=== PATIENT | male | born 1995 | race Caucasian/White ===

== ENCOUNTER 2018-06-11 06:09 | Emergency (ER) | payer SELFPAY ==
--- NOTE | 2018-06-11 07:04 | ER ---
Nurse's Notes [facility] Name: Sen Chavis Age: 22 yrs Sex: Male : 1995 Arrival Date: 06/11/2018 Time: 06:12 Bed 7 Private MD: Diagnosis: Acute pharyngitis Presentation: 06/11 06:15 Presenting complaint: Patient states: that for 3 days he has had a cough, congestion fc with yellow sputum and sore throat. Denies any fever. Was sent home from work this am at 0200. Transition of care: patient was not received from another setting of care. Onset of symptoms was June 08, 2018. Risk Assessment: Do you want to hurt yourself or someone else? Patient reports no desire to harm self or others. Initial Sepsis Screen: Does the patient meet any 2 criteria? No. Patient's initial sepsis screen is negative. Does the patient have a suspected source of infection? No. Patient's initial sepsis screen is negative. Care prior to arrival: None. 06:15 Method Of Arrival: Ambulatory 06:15 Acuity: ASHOK 4 fc Historical: - Allergies: 06:32 No Known Allergies; fc - Home Meds: 06:32 None [Active]; fc - PMHx: 06:32 None; fc - PSHx: 06:32 None; fc - Immunization history:: Last tetanus immunization: unknown, Flu vaccine is not up to date. - Social history:: Smoking status: Patient/guardian denies using tobacco, Patient uses alcohol, occasionally. - Ebola Screening: : Patient negative for fever greater than or equal to 101.5 degrees Fahrenheit, and additional compatible Ebola Virus Disease symptoms Patient denies exposure to infectious person Patient denies travel to an Ebola-affected area in the 21 days before illness onset. Screenin:15 Abuse screen: Denies threats or abuse. Nutritional screening: No deficits noted. fc Tuberculosis screening: No symptoms or risk factors identified. Fall Risk None identified. Assessment: 07:00 General: Appears in no apparent distress. comfortable, Behavior is calm, cooperative, bp appropriate for age. Pain: Complains of pain in neck. Neuro: Level of Consciousness is awake, alert, obeys commands, Oriented to person, place, time, situation, Appropriate for age. Cardiovascular: No deficits noted. Respiratory: Airway is patent Respiratory effort is even, unlabored, Respiratory pattern is regular, symmetrical, Breath sounds are clear bilaterally. GI: No signs and/or symptoms were reported involving the gastrointestinal system. : No signs and/or symptoms were reported regarding the genitourinary system. EENT: Throat is reddened bilaterally with gag reflex present. Derm: No deficits noted. Musculoskeletal: Circulation, motion, and sensation intact. Range of motion: intact in all extremities. 07:41 Reassessment: PT D/C HOME AMBULATORY WITH FAMILY, DX WITH ACUTE PHARYNGITIS. bp Vital Signs: 06:15 BP 122 / 94; Pulse 72; Resp 18; Temp 98.4(O); Pulse Ox 98% on R/A; Weight 97.52 kg (R); fc Height 6 ft. 1 in. (185.42 cm) (R); Pain 8/10; 07:21 BP 122 / 75; Pulse 69; Resp 14; Pulse Ox 98% ; bp 06:15 Body Mass Index 28.37 (97.52 kg, 185.42 cm) ED Course: 06:12 Patient arrived in ED. ag3 06:15 Arm band placed on Patient placed in an exam room, on a stretcher. fc 06:15 Patient has correct armband on for positive identification. Bed in low position. Call light in reach. 06:15 No provider procedures requiring assistance completed. fc 06:30 Triage completed. fc 06:32 [facility] jr8 06:32 Geoffrey Christianson MD is Attending Physician. jr8 06:59 Johnie Klein, KIERRA is Primary Nurse. bp 07:22 Patient did not have IV access during this emergency room visit. bp Administered Medications: 07:15 Drug: Decadron 4 mg Route: PO; bp 07:19 Follow up: Response: No adverse reaction bp Outcome: 07:04 Discharge ordered by . jr8 07:41 Discharged to home ambulatory, with family. bp 07:41 Condition: stable 07:41 Discharge instructions given to patient, Instructed on discharge instructions, follow up and referral plans. medication usage, Demonstrated understanding of instructions, follow-up care, medications, Prescriptions given X 1. 07:42 Patient left the ED. bp Signatures: Modesta Haile RN RN Marcus Haney PA PA jr Latoya, Johnie, RN RN bp Russell, Shelly ag3
--- NOTE | 2018-06-11 07:05 | EDPHYS ---
Physician Documentation [facility] Name: Sen Chavis Age: 22 yrs Sex: Male : 1995 Arrival Date: 06/11/2018 Time: 06:12 Bed 7 Private MD: ED Physician Geoffrey Christianson HPI: 06/11 06:48 This 22 yrs old Male presents to ER via Ambulatory with complaints of Sore jr8 Throat. 06:48 The patient presents with sore throat. The patient describes throat pain as raw. Onset: jr8 The symptoms/episode began/occurred acutely, yesterday. Severity of symptoms: At their worst the symptoms were moderate, in the emergency department the symptoms are unchanged. Modifying factors: The symptoms are alleviated by nothing, the symptoms are aggravated by swallowing. Associated signs and symptoms: The patient has no apparent associated signs or symptoms. The patient has not experienced similar symptoms in the past. The patient has not recently seen a physician. Historical: - Allergies: 06:32 No Known Allergies; fc - Home Meds: 06:32 None [Active]; fc - PMHx: 06:32 None; fc - PSHx: 06:32 None; fc - Immunization history:: Last tetanus immunization: unknown, Flu vaccine is not up to date. - Social history:: Smoking status: Patient/guardian denies using tobacco, Patient uses alcohol, occasionally. - Ebola Screening: : Patient negative for fever greater than or equal to 101.5 degrees Fahrenheit, and additional compatible Ebola Virus Disease symptoms Patient denies exposure to infectious person Patient denies travel to an Ebola-affected area in the 21 days before illness onset. ROS: 06:48 Eyes: Negative for injury, pain, redness, and discharge, Neck: Negative for injury, jr8 pain, and swelling, Cardiovascular: Negative for chest pain, palpitations, and edema, Respiratory: Negative for shortness of breath, cough, wheezing, and pleuritic chest pain, Abdomen/GI: Negative for abdominal pain, nausea, vomiting, diarrhea, and constipation, Back: Negative for injury and pain, MS/Extremity: Negative for injury and deformity, Skin: Negative for injury, rash, and discoloration, Neuro: Negative for headache, weakness, numbness, tingling, and seizure. 06:48 ENT: Positive for sore throat, Negative for drainage from ear(s), ear pain, rhinorrhea, sinus congestion, difficulty swallowing, difficulty handling secretions, hoarseness. Exam: 06:48 Eyes: Pupils equal round and reactive to light, extra-ocular motions intact. Lids and jr8 lashes normal. Conjunctiva and sclera are non-icteric and not injected. Cornea within normal limits. Periorbital areas with no swelling, redness, or edema. Neck: Trachea midline, no thyromegaly or masses palpated, and no cervical lymphadenopathy. Supple, full range of motion without nuchal rigidity, or vertebral point tenderness. No Meningismus. Cardiovascular: Regular rate and rhythm with a normal S1 and S2. No gallops, murmurs, or rubs. Normal PMI, no JVD. No pulse deficits. Respiratory: Lungs have equal breath sounds bilaterally, clear to auscultation and percussion. No rales, rhonchi or wheezes noted. No increased work of breathing, no retractions or nasal flaring. Abdomen/GI: Soft, non-tender, with normal bowel sounds. No distension or tympany. No guarding or rebound. No evidence of tenderness throughout. Back: No spinal tenderness. No costovertebral tenderness. Full range of motion. Skin: Warm, dry with normal turgor. Normal color with no rashes, no lesions, and no evidence of cellulitis. MS/ Extremity: Pulses equal, no cyanosis. Neurovascular intact. Full, normal range of motion. Neuro: Awake and alert, GCS 15, oriented to person, place, time, and situation. Cranial nerves II-XII grossly intact. Motor strength 5/5 in all extremities. Sensory grossly intact. Cerebellar exam normal. Normal gait. 06:48 ENT: Exam is negative for earache, ear discharge, TM abnormalities, nasal discharge, Mouth: Lips: moist, Oral mucosa: pink and intact, moist, Gums: pink, Tongue: is normal, Posterior pharynx: Airway: patent, Tonsils: with erythema, no enlargement, no exudate, no ulcerations, Uvula: midline, non-edematous, no erythema, swelling, is not appreciated, erythema, that is mild. Vital Signs: 06:15 BP 122 / 94; Pulse 72; Resp 18; Temp 98.4(O); Pulse Ox 98% on R/A; Weight 97.52 kg (R); fc Height 6 ft. 1 in. (185.42 cm) (R); Pain 8/10; 07:21 BP 122 / 75; Pulse 69; Resp 14; Pulse Ox 98% ; bp 06:15 Body Mass Index 28.37 (97.52 kg, 185.42 cm) MDM: 06:32 Patient medically screened. 8 07:03 Data reviewed: vital signs, nurses notes, lab test result(s), and as a result, I will jr8 discharge patient. Data interpreted: Pulse oximetry: on room air is 98 %. Interpretation: normal. Counseling: I had a detailed discussion with the patient and/or guardian regarding: the historical points, exam findings, and any diagnostic results supporting the discharge/admit diagnosis, lab results, the need for outpatient follow up, a family practitioner, to return to the emergency department if symptoms worsen or persist or if there are any questions or concerns that arise at home. 06/11 06:28 Order name: Strep; Complete Time: 07:03 em1 06/11 06:52 Order name: Throat Culture EDMS Administered Medications: 07:15 Drug: Decadron 4 mg Route: PO; bp 07:19 Follow up: Response: No adverse reaction bp Disposition: 06/11/18 07:04 Discharged to Home. Impression: Acute pharyngitis. - Condition is Stable. - Discharge Instructions: Pharyngitis. - Prescriptions for Tessalon Perles 100 mg Oral Capsule - take 1 capsule by ORAL route every 8 hours As needed; 15 capsule. - Work release form, Medication Reconciliation Form, Thank You Letter, Antibiotic Education, Prescription Opioid Use form. - Follow up: Private Physician; When: As needed; Reason: Recheck today's complaints, Continuance of care, Re-evaluation by your physician. - Problem is new. - Symptoms have improved. Signatures: Dispatcher [employer] EDMS Modesta Haile RN RN Marcus Haney PA PA jr8 Johnie Klein RN RN bp Corrections: (The following items were deleted from the chart) 07:42 07:04 06/11/2018 07:04 Discharged to Home. Impression: Acute pharyngitis. Condition is bp Stable. Forms are Medication Reconciliation Form, Thank You Letter, Antibiotic Education, Prescription Opioid Use. Follow up: Private Physician; When: As needed; Reason: Recheck today's complaints, Continuance of care, Re-evaluation by your physician. Problem is new. Symptoms have improved. jr8
[2018-06-11] MEDS ORDERED: DEXAMETHASONE 4 MG TAB ONE (07:23)
== END 2018-06-11 07:42 | disposition home or self-care (01) ==
LOC: ER 06:09
DX: J02.9 Acute pharyngitis, unspecified (principal)
CPT/HCPCS: 87070; 87081; 99283

== ENCOUNTER 2020-09-29 21:43 | Emergency (ER) | payer SELFPAY ==
[2020-09-30] MEDS ORDERED: DIPHENHYDRAMINE 25 MG TAB/CAP ONE (01:50)
[2020-09-30] MEDS ORDERED: predniSONE 20 MG TAB ONE (01:50)
[2020-09-30] MEDS ORDERED: FAMOTIDINE 20 MG TAB ONE (01:51)
--- NOTE | 2020-09-30 02:12 | ER ---
Nurse's Notes [facility] Name: Sen Chavis Age: 25 yrs Sex: Male : 1995 Arrival Date: 09/29/2020 Time: 21:46 Bed 30 Private MD: Diagnosis: Rash and other nonspecific skin eruption Presentation: 09/29 22:14 Chief complaint: Patient states: he is having an allergic reaction possibly to an asp bb that was on him yesterday has taken Benadryl with no relief. Coronavirus screen: At this time, the client does not indicate any symptoms associated with coronavirus-19. Ebola Screen: No symptoms or risks identified at this time. Initial Sepsis Screen: Does the patient meet any 2 criteria? No. Patient's initial sepsis screen is negative. Does the patient have a suspected source of infection? No. Patient's initial sepsis screen is negative. Risk Assessment: Do you want to hurt yourself or someone else? Patient reports no desire to harm self or others. Onset of symptoms was September 28, 2020. 22:14 Method Of Arrival: Ambulatory bb 22:14 Acuity: ASHOK 4 bb Triage Assessment: 22:17 General: Appears in no apparent distress. Behavior is calm, cooperative. Pain: bb Complains of pain in throat Pain currently is 6 out of 10 on a pain scale. Neuro: Level of Consciousness is awake, alert, obeys commands, Oriented to person, place, time, situation. Cardiovascular: Heart tones present. Respiratory: Respiratory effort is even, unlabored, Respiratory pattern is regular. Derm: Rash noted that is raised, vesicular, on back of neck. Musculoskeletal: Circulation, motion, and sensation intact. Historical: - Allergies: 22:17 poison rich; bb 22:17 wasps; bb - Immunization history:: Adult Immunizations up to date. - Social history:: Smoking status: Patient denies any tobacco usage or history of. Screenin/26 00:12 Abuse screen: Denies threats or abuse. Nutritional screening: No deficits noted. bb Tuberculosis screening: No symptoms or risk factors identified. Fall Risk None identified. Assessment: 00:12 Reassessment: No changes from previously documented assessment. see triage assessment. bb 00:58 Reassessment: Patient is alert, oriented x 3, equal unlabored respirations, skin bb warm/dry/pink. 02:32 Reassessment: Patient is alert, oriented x 3, equal unlabored respirations, skin bb warm/dry/pink. pt verbalized understanding of and agrees to plan of care discharge instructions given pt ambulated with steady gait to exit accompanied by family. Vital Signs: 09/29 22:14 BP 135 / 91; Pulse 73; Resp 16 S; Temp 98.7(O); Pulse Ox 99% on R/A; Weight 104.33 kg bb (R); Height 5 ft. 11 in. (180.34 cm) (R); Pain 6/10; 09/30 00:58 BP 114 / 85; Pulse 92; Resp 14 S; Pulse Ox 95% on R/A; bb 01:59 BP 116 / 85; Pulse 77; Resp 14 S; Temp 97.4(TE); Pulse Ox 96% on R/A; bb 09/29 22:14 Body Mass Index 32.08 (104.33 kg, 180.34 cm) bb ED Course: 09/29 21:46 Patient arrived in ED. bp1 22:16 Triage completed. bb 22:17 Arm band placed on Patient placed in waiting room, Patient notified of wait time. bb 09/30 00:12 Patient has correct armband on for positive identification. Bed in low position. Call bb light in reach. 00:29 Gabriel Gutierrez MD is Attending Physician. 7 02:11 Giovanny Elmore MD is Referral Physician. [facility] 02:32 No provider procedures requiring assistance completed. Patient did not have IV access bb during this emergency room visit. Administered Medications: 01:36 Drug: Benadryl (diphenhydrAMINE) 50 mg Route: PO; bb 02:29 Follow up: Response: No adverse reaction bb 01:36 Drug: predniSONE 60 mg Route: PO; bb 02:29 Follow up: Response: No adverse reaction bb 01:36 Drug: Pepcid (famotidine) 20 mg Route: PO; bb 02:29 Follow up: Response: No adverse reaction bb Outcome: 02:12 Discharge ordered by . 7 02:32 Discharged to home ambulatory, with family. bb 02:32 Condition: stable 02:32 Discharge instructions given to patient, Instructed on discharge instructions, follow up and referral plans. medication usage, Demonstrated understanding of instructions, follow-up care, medications, Prescriptions given X 3. 02:33 Patient left the ED. bb Signatures: Rosa Isela Bryan RN RN Radha Sanches Maurice, MD MD mh7
--- NOTE | 2020-09-30 02:12 | EDPHYS ---
Physician Documentation [facility] Name: Sen Chavis Age: 25 yrs Sex: Male : 1995 Arrival Date: 09/29/2020 Time: 21:46 Bed 30 Private MD: ED Physician Gabriel Gutierrez HPI: 09/30 02:03 This 25 yrs old Male presents to ER via Ambulatory with complaints of Rash, - mh7 On neck. 02:03 The patient's rash thought to be caused by insect bites. The rash is located on the mh7 left side of neck. The rash can be described as erythematous, urticarial, itchy. 02:05 Onset: The symptoms/episode began/occurred 2 day(s) ago. Associated signs and symptoms: mh7 Pertinent positives: itching. 02:05 Associated signs and symptoms: Pertinent negatives: burning sensation, difficulty mh7 breathing, fever, nausea, Pain swelling of lips, swelling of throat, swelling of tongue, vomiting, wheezing. Severity of symptoms: At their worst the symptoms were moderate yesterday, in the emergency department the symptoms have improved mildly. Historical: - Allergies: 09/29 22:17 poison rich; bb 22:17 wasps; bb - Immunization history:: Adult Immunizations up to date. - Social history:: Smoking status: Patient denies any tobacco usage or history of. ROS: 09/30 02:05 Constitutional: Negative for fever, chills, and weight loss, Eyes: Negative for injury, mh7 pain, redness, and discharge, ENT: Negative for injury, pain, and discharge, Cardiovascular: Negative for chest pain, palpitations, and edema, Respiratory: Negative for shortness of breath, cough, wheezing, and pleuritic chest pain, Abdomen/GI: Negative for abdominal pain, nausea, vomiting, diarrhea, and constipation, Back: Negative for injury and pain, : Negative for injury, bleeding, discharge, and swelling, MS/Extremity: Negative for injury and deformity, Neuro: Negative for headache, weakness, numbness, tingling, and seizure, Psych: Negative for depression, anxiety, suicide ideation, homicidal ideation, and hallucinations, Endocrine: Negative for neck swelling, polydipsia, polyuria, polyphagia, and marked weight changes, Hematologic/Lymphatic: Negative for swollen nodes, abnormal bleeding, and unusual bruising. Exam: 02:05 Constitutional: This is a well developed, well nourished patient who is awake, alert, mh7 and in no acute distress. Head/Face: Normocephalic, atraumatic. Eyes: Pupils equal round and reactive to light, extra-ocular motions intact. Lids and lashes normal. Conjunctiva and sclera are non-icteric and not injected. Cornea within normal limits. Periorbital areas with no swelling, redness, or edema. ENT: Nares patent. No nasal discharge, no septal abnormalities noted. Tympanic membranes are normal and external auditory canals are clear. Oropharynx with no redness, swelling, or masses, exudates, or evidence of obstruction, uvula midline. Mucous membranes moist. 02:05 Cardiovascular: Regular rate and rhythm with a normal S1 and S2. No gallops, murmurs, or rubs. Normal PMI, no JVD. No pulse deficits. Respiratory: Lungs have equal breath sounds bilaterally, clear to auscultation and percussion. No rales, rhonchi or wheezes noted. No increased work of breathing, no retractions or nasal flaring. Abdomen/GI: Soft, non-tender, with normal bowel sounds. No distension or tympany. No guarding or rebound. No evidence of tenderness throughout. Back: No spinal tenderness. No costovertebral tenderness. Full range of motion. 02:05 MS/ Extremity: Pulses equal, no cyanosis. Neurovascular intact. Full, normal range of motion. Neuro: Awake and alert, GCS 15, oriented to person, place, time, and situation. Cranial nerves II-XII grossly intact. Motor strength 5/5 in all extremities. Sensory grossly intact. Cerebellar exam normal. Normal gait. Psych: Awake, alert, with orientation to person, place and time. Behavior, mood, and affect are within normal limits. 02:05 Neck: External neck: rash, that is mild, of the left mid cervical area and left trapezius, C-spine: appears grossly normal, Thyroid: appears normal, Trachea: is midline with no obvious abnormalities, ROM/movement: is normal, Lymph nodes: no appreciated lymphadenopathy. 02:05 Chest/axilla: Inspection: rash, that is mild, Palpation: is normal, Axilla: are normal, Lymph nodes: lymphadenopathy is not appreciated. 02:05 Skin: urticaria, on the left side postrior neck to left upper chest. Vital Signs: 09/29 22:14 BP 135 / 91; Pulse 73; Resp 16 S; Temp 98.7(O); Pulse Ox 99% on R/A; Weight 104.33 kg bb (R); Height 5 ft. 11 in. (180.34 cm) (R); Pain 6/10; 09/30 00:58 BP 114 / 85; Pulse 92; Resp 14 S; Pulse Ox 95% on R/A; bb 01:59 BP 116 / 85; Pulse 77; Resp 14 S; Temp 97.4(TE); Pulse Ox 96% on R/A; bb 09/29 22:14 Body Mass Index 32.08 (104.33 kg, 180.34 cm) bb MDM: 02:05 Differential diagnosis: impetigo, allergic reaction, insect bite. Data reviewed: vital [facility] signs, nurses notes. Data interpreted: Pulse oximetry: on room air is 96 %. Interpretation: normal. Counseling: I had a detailed discussion with the patient and/or guardian regarding: the historical points, exam findings, and any diagnostic results supporting the discharge/admit diagnosis, the need for outpatient follow up, a tail end rider, to return to the emergency department if symptoms worsen or persist or if there are any questions or concerns that arise at home. Response to treatment: the patient's symptoms have markedly improved after treatment. 02:12 Patient medically screened. [facility] Administered Medications: 01:36 Drug: Benadryl (diphenhydrAMINE) 50 mg Route: PO; bb 02:29 Follow up: Response: No adverse reaction bb 01:36 Drug: predniSONE 60 mg Route: PO; bb 02:29 Follow up: Response: No adverse reaction bb 01:36 Drug: Pepcid (famotidine) 20 mg Route: PO; bb 02:29 Follow up: Response: No adverse reaction bb Disposition: 09/30/20 02:12 Discharged to Home. Impression: Rash and other nonspecific skin eruption. - Condition is Stable. - Discharge Instructions: Rash, [id number], Allergies, [id number]. - Prescriptions for Benadryl 25 mg Oral Capsule - take 1 capsule by ORAL route every 6 hours As needed; 30 tablet. Pepcid 20 mg Oral Tablet - take 1 tablet by ORAL route every 12 hours for 5 days; 10 tablet. Prednisone 20 mg Oral Tablet - take 2 tablet by ORAL route once daily for 5 days; 10 tablet. - Family Work Release, Medication Reconciliation Form, Thank You Letter, Antibiotic Education, Prescription Opioid Use, Work release form form. - Follow up: Private Physician; When: 1 - 2 days; Reason: Worsening of condition, Recheck today's complaints, Continuance of care, Re-evaluation by your physician. Follow up: Giovanny Elmore MD; When: 1 - 2 days; Reason: Worsening of condition, Recheck today's complaints. - Problem is new. - Symptoms have improved. Signatures: Rosa Isela Bryan RN RN bb Gabriel Gutierrez MD MD mh7 Corrections: (The following items were deleted from the chart) 02:33 02:12 09/30/2020 02:12 Discharged to Home. Impression: Rash and other nonspecific skin bb eruption. Condition is Stable. Forms are Medication Reconciliation Form, Thank You Letter, Antibiotic Education, Prescription Opioid Use. Follow up: Private Physician; When: 1 - 2 days; Reason: Worsening of condition, Recheck today's complaints, Continuance of care, Re-evaluation by your physician. Follow up: Giovanny Elmore; When: 1 - 2 days; Reason: Worsening of condition, Recheck today's complaints. Problem is new. Symptoms have improved. mh7
[2020-09-30 02:41] VITALS: BP 116/85; TEMP 97.4; O2SAT 96
== END 2020-09-30 02:33 | disposition home or self-care (01) ==
LOC: ER 21:43
DX: R21 Rash and other nonspecific skin eruption (principal); Z91.038 Other insect allergy status; Z91.048 Other nonmedicinal substance allergy status
CPT/HCPCS: 99283; J7512

== ENCOUNTER 2020-11-08 17:08 | Emergency (ER) | payer SELFPAY ==
--- NOTE | 2020-11-08 17:23 | ER ---
Nurse's Notes [facility] Nathanael Name: Sen Chavis Age: 25 yrs Sex: Male : 1995 Arrival Date: 11/08/2020 Time: 17:11 Bed Waiting Private MD: Diagnosis: Diarrhea, unspecified Presentation: 11/08 17:16 Chief complaint: Patient states: "I am just needing a work note for calling into work jd3 today for some diarrhea. I am fine now, I just need a note.". Coronavirus screen: At this time, the client does not indicate any symptoms associated with coronavirus-19. Ebola Screen: Patient negative for fever greater than or equal to 101.5 degrees Fahrenheit, and additional compatible Ebola Virus Disease symptoms. Initial Sepsis Screen: Does the patient meet any 2 criteria? No. Patient's initial sepsis screen is negative. Does the patient have a suspected source of infection? No. Patient's initial sepsis screen is negative. Risk Assessment: Do you want to hurt yourself or someone else? Patient reports no desire to harm self or others. Onset of symptoms was November 08, 2020. 17:16 Acuity: ASHOK 5 jd3 17:16 Method Of Arrival: Ambulatory jd3 Historical: - Allergies: 17:18 POISON EDI; jd3 17:18 Wasps; jd3 - Home Meds: 17:18 None [Active]; jd3 - PMHx: 17:18 None; jd3 - PSHx: 17:18 None; jd3 - Immunization history:: Adult Immunizations up to date. - Social history:: Smoking status: Patient/guardian denies using tobacco, the patient reports quitting approximately 2 years ago. Screenin:30 Abuse screen: Denies threats or abuse. Nutritional screening: No deficits noted. jd3 Tuberculosis screening: No symptoms or risk factors identified. Fall Risk None identified. Assessment: 17:30 General: Appears in no apparent distress. comfortable, Behavior is calm, cooperative, jd3 appropriate for age. Pain: Denies pain. Neuro: Level of Consciousness is awake, alert, obeys commands, Oriented to person, place, time, situation. Cardiovascular: Denies chest pain, Capillary refill < 3 seconds Patient's skin is warm and dry. Respiratory: Airway is patent Respiratory effort is even, unlabored, Respiratory pattern is regular, symmetrical, Denies cough, shortness of breath. GI: Reports diarrhea earlier today. reports feeling better now. : No signs and/or symptoms were reported regarding the genitourinary system. EENT: No signs and/or symptoms were reported regarding the EENT system. Derm: Skin is intact, Skin is dry, Skin is normal, Skin temperature is warm. Musculoskeletal: Circulation, motion, and sensation intact. Range of motion: intact in all extremities. Vital Signs: 17:18 BP 120 / 87; Pulse 88; Resp 16 S; Temp 97.5(TE); Pulse Ox 99% on R/A; Weight 97.52 kg jd3 (R); Height 6 ft. 0 in. (182.88 cm) (R); Pain 0/10; 17:18 Body Mass Index 29.16 (97.52 kg, 182.88 cm) jd3 ED Course: 17:11 Patient arrived in ED. mr 17:17 Triage completed. jd3 17:18 Arm band placed on. jd3 17:20 Marcus Haney PA is PHCP. jr8 17:20 Kelton Guzman MD is Attending Physician. jr8 17:30 Charles Short RN is Primary Nurse. jd3 17:31 No provider procedures requiring assistance completed. Patient did not have IV access jd3 during this emergency room visit. 17:32 Patient has correct armband on for positive identification. Bed in low position. Call jd3 light in reach. Pulse ox on. NIBP on. Administered Medications: No medications were administered Outcome: 17:23 Discharge ordered by . jr8 17:31 Discharged to home ambulatory. jd3 17:31 Condition: stable 17:31 Discharge instructions given to patient, Instructed on discharge instructions, follow up and referral plans. Demonstrated understanding of instructions, follow-up care. 17:32 Patient left the ED. jd3 Signatures: James Kirsten mr Marcus Haney PA PA jr8 Charles Short, RN RN jd3
--- NOTE | 2020-11-08 17:23 | EDPHYS ---
Physician Documentation [facility] Name: Sen Chavis Age: 25 yrs Sex: Male : 1995 Arrival Date: 11/08/2020 Time: 17:11 Bed Waiting Private MD: ED Physician Kelton Guzman HPI: 11/08 17:20 This 25 yrs old Male presents to ER via Ambulatory with complaints of jr8 Diarrhea. 17:20 The patient presents to the emergency department with diarrhea. Onset: The jr8 symptoms/episode began/occurred acutely, yesterday. Possible causes: unknown. The symptoms are aggravated by nothing. The symptoms are alleviated by nothing. Associated signs and symptoms: The patient has no apparent associated signs or symptoms. Severity of symptoms: At their worst the symptoms were mild in the emergency department the symptoms have resolved and did so earlier today. The patient has not experienced similar symptoms in the past. The patient has not recently seen a physician. Stated that work will not let him come back now without work note. Denies any symptoms now . Historical: - Allergies: 17:18 POISON EDI; jd3 17:18 Wasps; jd3 - Home Meds: 17:18 None [Active]; jd3 - PMHx: 17:18 None; jd3 - PSHx: 17:18 None; jd3 - Immunization history:: Adult Immunizations up to date. - Social history:: Smoking status: Patient/guardian denies using tobacco, the patient reports quitting approximately 2 years ago. ROS: 17:20 Eyes: Negative for injury, pain, redness, and discharge, ENT: Negative for injury, jr8 pain, and discharge, Neck: Negative for injury, pain, and swelling, Cardiovascular: Negative for chest pain, palpitations, and edema, Respiratory: Negative for shortness of breath, cough, wheezing, and pleuritic chest pain, Back: Negative for injury and pain, MS/Extremity: Negative for injury and deformity, Skin: Negative for injury, rash, and discoloration, Neuro: Negative for headache, weakness, numbness, tingling, and seizure. 17:20 Abdomen/GI: Positive for diarrhea, Negative for abdominal pain, nausea, vomiting, abdominal distension, rectal bleeding. Exam: 17:20 Constitutional: This is a well developed, well nourished patient who is awake, alert, jr8 and in no acute distress. Eyes: Pupils equal round and reactive to light, extra-ocular motions intact. Lids and lashes normal. Conjunctiva and sclera are non-icteric and not injected. Cornea within normal limits. Periorbital areas with no swelling, redness, or edema. ENT: Nares patent. No nasal discharge, no septal abnormalities noted. Tympanic membranes are normal and external auditory canals are clear. Oropharynx with no redness, swelling, or masses, exudates, or evidence of obstruction, uvula midline. Mucous membranes moist. Neck: Trachea midline, no thyromegaly or masses palpated, and no cervical lymphadenopathy. Supple, full range of motion without nuchal rigidity, or vertebral point tenderness. No Meningismus. Cardiovascular: Regular rate and rhythm with a normal S1 and S2. No gallops, murmurs, or rubs. Normal PMI, no JVD. No pulse deficits. Respiratory: Lungs have equal breath sounds bilaterally, clear to auscultation and percussion. No rales, rhonchi or wheezes noted. No increased work of breathing, no retractions or nasal flaring. Abdomen/GI: Soft, non-tender, with normal bowel sounds. No distension or tympany. No guarding or rebound. No evidence of tenderness throughout. Back: No spinal tenderness. No costovertebral tenderness. Full range of motion. Skin: Warm, dry with normal turgor. Normal color with no rashes, no lesions, and no evidence of cellulitis. MS/ Extremity: Pulses equal, no cyanosis. Neurovascular intact. Full, normal range of motion. Neuro: Awake and alert, GCS 15, oriented to person, place, time, and situation. Cranial nerves II-XII grossly intact. Motor strength 5/5 in all extremities. Sensory grossly intact. Cerebellar exam normal. Normal gait. Vital Signs: 17:18 BP 120 / 87; Pulse 88; Resp 16 S; Temp 97.5(TE); Pulse Ox 99% on R/A; Weight 97.52 kg jd3 (R); Height 6 ft. 0 in. (182.88 cm) (R); Pain 0/10; 17:18 Body Mass Index 29.16 (97.52 kg, 182.88 cm) jd3 MDM: 17:20 Patient medically screened. jr8 17:20 Data reviewed: vital signs, nurses notes, and as a result, I will discharge patient. jr8 Data interpreted: Pulse oximetry: on room air is 99 %. Interpretation: normal. Counseling: I had a detailed discussion with the patient and/or guardian regarding: the historical points, exam findings, and any diagnostic results supporting the discharge/admit diagnosis, the need for outpatient follow up, a family practitioner, to return to the emergency department if symptoms worsen or persist or if there are any questions or concerns that arise at home. Administered Medications: No medications were administered Disposition: 18:44 Co-signature as Attending Physician, Kelton Guzman MD I agree with the assessment and kdr plan of care. Disposition: 11/08/20 17:23 Discharged to Home. Impression: Diarrhea, unspecified. - Condition is Stable. - Discharge Instructions: Food Choices to Help Relieve Diarrhea, Adult, Diarrhea, Adult. - Work release form, Medication Reconciliation Form, Thank You Letter, Antibiotic Education, Prescription Opioid Use form. - Follow up: Private Physician; When: As needed; Reason: Recheck today's complaints, Continuance of care, Re-evaluation by your physician. - Problem is new. - Symptoms are resolved. Signatures: Kelton Guzman MD MD kdr Marcus Haney PA PA jr8 Charles Short RN RN jd3 Corrections: (The following items were deleted from the chart) 17:32 17:23 11/08/2020 17:23 Discharged to Home. Impression: Diarrhea, unspecified. Condition jd3 is Stable. Forms are Medication Reconciliation Form, Thank You Letter, Antibiotic Education, Prescription Opioid Use. Follow up: Private Physician; When: As needed; Reason: Recheck today's complaints, Continuance of care, Re-evaluation by your physician. Problem is new. Symptoms are resolved. jr8
[2020-11-08 18:11] VITALS: BP 120/87; TEMP 97.5; O2SAT 99
== END 2020-11-08 17:32 | disposition home or self-care (01) ==
LOC: ER 17:08
DX: R19.7 Diarrhea, unspecified (principal); Z87.891 Personal history of nicotine dependence
CPT/HCPCS: 99283

== ENCOUNTER 2023-03-09 10:33 | Emergency (ER) | payer SELFPAY ==
--- OUTSIDE RECORDS SUMMARY | 2023-03-09 10:47 | XMS REPORT | Continuity of Care Document ---
:1995 [facility] t Address [address] [facility] [address] [place] [address] Care Team Providers Name Role Phone Pcp, Patient Does Not Have A Primary Care Physician [id number] LEIGHTON ROMEOR Attending Clinician Unavailable Doctor Unassigned, [place] Attending Clinician Unavailable Gill Perez RN Attending Clinician Unavailable Unknown, Attending Attending Clinician Unavailable Payers Payer Name Policy Type Policy Number Effective Date Expiration Date [facility] [id number] 2014 PPO 00:00:00 Problems This patient has no known problems. Allergies, Adverse Reactions, Alerts Allergy Allergy Status Severity Reaction(s) Onset Inactive Treating Comm ents Source Name Type Date Date Clinician NO KNOWN Drug Active [facility] ALLERGIE Class ity of [facility] Social History Social Habit Start Date Stop Date Quantity Comments Source Sexual orientation [facility] Exposure to 2020-12-26 2021-01-25 Not sure [facility] SARS-CoV-2 (event) 00:00:00 10:39:00 Medica l Branch Sex Assigned At [birth year] [facility] 00:00:00 00:00:00 Medical Branch Smoking Status Start Date Stop Date Source Tobacco smoking consumption [facility] Medical unknown Branch Medications Ordered Filled Start Stop Current Ordering Indication Dosage Frequency Signature Comments Components Source Medication Medication Date Date Medication? Clinician (SIG) Name Name benzonatate 2018-06 Yes [id number] 100mg Take 1 Univers 100 mg 1-11 capsule by ity of capsule 00:00: mouth 3 00 (three) Medical times Branch daily as needed for Cough. methylPREDN 2018-06 Yes [id number] Take by Univers ISolone 1-11 mouth ity of (MEDROL, 00:00: SEE-INSTRU [place] as MIK,) 4 mg 00 CTIONS. Medica l tablets follow Branch package directions ondansetron 2018-06 Yes [id number] 4mg Take 1 Univers (ZOFRAN 1-11 tablet by ity of ODT) 4 mg 00:00: mouth [place] disintegrat 00 every 8 Medic al ing tablet (eight) Branch hours as needed for Nausea and Vomiting (N/V). ibuprofen 2018-06 Yes [id number] 600mg Take 1 U nivers 600 mg 1-11 tablet by ity of tablet 00:00: mouth [place] 00 every 6 Medical (six) Branch hours as needed for Pain (scale 4-6). benzonatate 2018-06 Yes [id number] 100mg Take 1 [facility] 100 mg 1-11 capsule by ity of capsule 00:00: mouth 3 [place] 00 (three) Medical times Branch daily as needed for Cough. methylPREDN 2018-06 Yes [id number] Take by Univers ISolone 1-11 mouth ity of (MEDROL, 00:00: SEE-INSTRU [place] as MIK,) 4 mg 00 CTIONS. Medica l tablets follow Branch package directions ondansetron 2018-06 Yes [id number] 4mg Take 1 Univers (ZOFRAN 1-11 tablet by ity of ODT) 4 mg 00:00: mouth [place] disintegrat 00 every 8 Medic al ing tablet (eight) Branch hours as needed for Nausea and Vomiting (N/V). ibuprofen 2018-06 Yes [id number] 600mg Take 1 U nivers 600 mg 1-11 tablet by ity of tablet 00:00: mouth [place] 00 every 6 Medical (six) Branch hours as needed for Pain (scale 4-6). benzonatate 2018-06 Yes [id number] 100mg Take 1 Univers 100 mg 1-11 capsule by ity of capsule 00:00: mouth 3 [place] 00 (three) Medical times Branch daily as needed for Cough. methylPREDN 2018-06 Yes [id number] Take by Univers ISolone 1-11 mouth ity of (MEDROL, 00:00: SEE-INSTRU [place] as MIK,) 4 mg 00 CTIONS. Medica l tablets follow Branch package directions ondansetron 2018-06 Yes [id number] 4mg Take 1 Univers (ZOFRAN 1-11 tablet by ity of ODT) 4 mg 00:00: mouth [place] disintegrat 00 every 8 Medic al ing tablet (eight) Branch hours as needed for Nausea and Vomiting (N/V). ibuprofen 2018-06 Yes [id number] 600mg Take 1 U nivers 600 mg 1-11 tablet by ity of tablet 00:00: mouth [place] 00 every 6 Medical (six) Branch hours as needed for Pain (scale 4-6). benzonatate 2018-06 Yes [id number] 100mg Take 1 Univers 100 mg 1-11 capsule by ity of capsule 00:00: mouth 3 [place] 00 (three) Medical times Branch daily as needed for Cough. methylPREDN 2018-06 Yes [id number] Take by Univers ISolone 1-11 mouth ity of (MEDROL, 00:00: SEE-INSTRU [place] as MIK,) 4 mg 00 CTIONS. Medica l tablets follow Branch package directions ondansetron 2018-06 Yes [id number] 4mg Take 1 Univers (ZOFRAN 1-11 tablet by ity of ODT) 4 mg 00:00: mouth [place] disintegrat 00 every 8 Medic al ing tablet (eight) Branch hours as needed for Nausea and Vomiting (N/V). ibuprofen 2018-06 Yes [id number] 600mg Take 1 U nivers 600 mg 1-11 tablet by ity of tablet 00:00: mouth [place] 00 every 6 Medical (six) Branch hours as needed for Pain (scale 4-6). benzonatate 2018-06 Yes [id number] 100mg Take 1 Univers 100 mg 1-11 capsule by ity of capsule 00:00: mouth 3 [place] 00 (three) Medical times Branch daily as needed for Cough. methylPREDN 2018-06 Yes [id number] Take by Univers ISolone 1-11 mouth ity of (MEDROL, 00:00: SEE-INSTRU [place] as MIK,) 4 mg 00 CTIONS. Medica l tablets follow Branch package directions ondansetron 2018-06 Yes [id number] 4mg Take 1 Univers (ZOFRAN 1-11 tablet by ity of ODT) 4 mg 00:00: mouth [place] disintegrat 00 every 8 Medic al ing tablet (eight) Branch hours as needed for Nausea and Vomiting (N/V). ibuprofen 2018-06 Yes [id number] 600mg Take 1 U nivers 600 mg 1-11 tablet by ity of tablet 00:00: mouth [place] 00 every 6 Medical (six) Branch hours as needed for Pain (scale 4-6). benzonatate 2018-06 Yes [id number] 100mg Take 1 Univers 100 mg 1-11 capsule by ity of capsule 00:00: mouth 3 [place] 00 (three) Medical times Branch daily as needed for Cough. methylPREDN 2018-06 Yes [id number] Take by Univers ISolone 1-11 mouth ity of (MEDROL, 00:00: SEE-INSTRU [place] as MIK,) 4 mg 00 CTIONS. Medica l tablets follow Branch package directions ondansetron 2018-06 Yes [id number] 4mg Take 1 Univers (ZOFRAN 1-11 tablet by ity of ODT) 4 mg 00:00: mouth [place] disintegrat 00 every 8 Medic al ing tablet (eight) Branch hours as needed for Nausea and Vomiting (N/V). ibuprofen 2018-06 Yes [id number] 600mg Take 1 U nivers 600 mg 1-11 tablet by ity of tablet 00:00: mouth [place] 00 every 6 Medical (six) Branch hours as needed for Pain (scale 4-6). benzonatate 2018-06 Yes [id number] 100mg Take 1 Univers 100 mg 1-11 capsule by ity of capsule 00:00: mouth 3 [place] 00 (three) Medical times Branch daily as needed for Cough. methylPREDN 2018-06 Yes [id number] Take by Univers ISolone 1-11 mouth ity of (MEDROL, 00:00: SEE-INSTRU [place] as MIK,) 4 mg 00 CTIONS. Medica l tablets follow Branch package directions ondansetron 2018-06 Yes [id number] 4mg Take 1 Univers (ZOFRAN 1-11 tablet by ity of ODT) 4 mg 00:00: mouth [place] disintegrat 00 every 8 Medic al ing tablet (eight) Branch hours as needed for Nausea and Vomiting (N/V). ibuprofen 2018-06 Yes [id number] 600mg Take 1 U nivers 600 mg 1-11 tablet by ity of tablet 00:00: mouth [place] 00 every 6 Medical (six) Branch hours as needed for Pain (scale 4-6). Procedures Procedure Date / Time Performed Performing Clinician [facility] e EXTERNAL PROVIDER 2021-02-07 05:01:00 Doctor Unassigned, No [facility] RECORDS Name Medical Branch ASSIGNMENT OF BENEFITS 2021-01-25 15:30:04 Doctor Unassigned, No [facility] Name [facility] Encounters Start End Encounter Admission Attending Care Care Encounter Source Date/Time Date/Time Type Type Clinicians Facility Department ID 2022-06-11 2022-06-11 Outpatient ALEXANDRA ROMERO [id number] Alexandra 08:30:00 08:30:00 LEIGHTON catracho turner 2021-02-07 2021-02-07 Orders Doctor REUBEN [id number] [id number] Univers 00:00:00 00:00:00 Only Unassigned, LIDIA [id number] ity of [place] [facility] [id number] Enoc as [phone] [address] 2021-01-26 2021-01-26 Letter REUBEN Perez [id number] Univers 00:00:00 00:00:00 (Out) Gill GARCIAY [id number] it y of HOSPITAL [id number] [place] as [phone] [facility] [address] 2021-01-26 2021-01-26 Patient Doctor REUBEN [id number] Univers 00:00:00 00:00:00 Secure Msg Unassigned, LIDIA [id number] ity of [place] [facility] [id number] Enoc as [phone] [address] 2021-01-25 2021-01-25 Outpatient R [facility] [id number] Univers 10:30:00 10:30:00 ity of [facility] 2021-01-25 2021-01-25 Letter Saloni, [facility] [id number] Univers 00:00:00 00:00:00 (Out) Attending [facility] [id number] ity of [place] [id number] Enoc as Dc?Blea [phone] [address] [facility] 2021-01-25 2021-01-25 Orders Doctor REUBEN [id number] Univers 00:00:00 00:00:00 Only Unassigned, LIDIA [id number] ity of [place] [facility] [id number] Enoc as [phone] [facility] 009 Branch 2021-01-25 2021-01-25 Letter Doctor REUBEN [id number] [id number] Univers 00:00:00 00:00:00 (Out) Unassigned, LIDIA [id number] ity of [place] [facility] [id number] Enoc as [phone] [facility] 044 Branch Results This patient has no known results.
[2023-03-09] MEDS ORDERED: HYDROCODONE/APAP 10/325 TAB ONE (11:07)
[2023-03-09] MEDS ORDERED: IBUPROFEN 400 MG TAB ONE (11:07)
--- NOTE | 2023-03-09 11:54 | RAD REPORT ---
EXAM DESCRIPTION: RAD - Knee Left 3 View - 03/09/2023 11:45 am CLINICAL HISTORY: pain/twisted knee COMPARISON: No comparisons TECHNIQUE: Left knee, 3 views. FINDINGS: No fracture, dislocation or periosteal reaction.Small joint effusion seen. No joint space narrowing. No soft tissue abnormality. Clinical concerns for internal derangement or occult bony injury could be further assessed with MR im aging. IMPRESSION: No acute osseous abnormality. Small left suprapatellar joint effusion.
--- NOTE | 2023-03-09 12:32 | EDPHYS ---
Physician Documentation [facility] Name: Sen Chavis Age: 27 yrs Sex: Male : 1995 Arrival Date: 03/09/2023 Time: 10:33 Bed 16 Private MD: MIHIR Physician Phu Yao HPI: 03/09 12:25 This 27 yrs old Male presents to ER via Ambulatory with complaints of Knee emiliano Pain. 12:25 The patient presents with decreased range of motion, pain, that is acute. The emiliano complaints affect the left knee. Context: resulted from playing sports, twisting of the extremity, while lifting or pulling, the patient can partially bear weight, must have assistance, from a friend. Onset: The symptoms/episode began/occurred yesterday. Modifying factors: The symptoms are alleviated by elevating leg, remaining still, the symptoms are aggravated by movement, bending knee. Associated signs and symptoms: The patient has no apparent associated signs or symptoms. Treatment prior to arrival includes: elevation of the extremity, over the counter medications, NSAIDS. The patient has not experienced similar symptoms in the past. Historical: - Allergies: 10:43 POISON EDI; aa5 10:43 Wasps; aa5 - Home Meds: 10:45 None [Active]; aa5 - PMHx: 10:45 None; aa5 - Immunization history:: Adult Immunizations unknown. - Social history:: Smoking status: Patient denies any tobacco usage or history of. - Family history:: not pertinent. ROS: 12:25 Constitutional: Negative for fever, chills, and weight loss, Eyes: Negative for injury, emiliano pain, redness, and discharge, ENT: Negative for injury, pain, and discharge, Neck: Negative for injury, pain, and swelling, Cardiovascular: Negative for chest pain, palpitations, and edema, Respiratory: Negative for shortness of breath, cough, wheezing, and pleuritic chest pain, Abdomen/GI: Negative for abdominal pain, nausea, vomiting, diarrhea, and constipation, Back: Negative for injury and pain, : Negative for injury, bleeding, discharge, and swelling, Skin: Negative for injury, rash, and discoloration, Neuro: Negative for headache, weakness, numbness, tingling, and seizure, Psych: Negative for depression, anxiety, suicide ideation, homicidal ideation, and hallucinations, Allergy/Immunology: Negative for hives, rash, and allergies, Endocrine: Negative for neck swelling, polydipsia, polyuria, polyphagia, and marked weight changes, 12:25 MS/extremity: Positive for decreased range of motion, of the left knee, Exam: 12:25 Constitutional: This is a well developed, well nourished patient who is awake, alert, emiliano and in no acute distress. Head/Face: Normocephalic, atraumatic. Eyes: Pupils equal round and reactive to light, extra-ocular motions intact. Lids and lashes normal. Conjunctiva and sclera are non-icteric and not injected. Cornea within normal limits. Periorbital areas with no swelling, redness, or edema. ENT: Nares patent. No nasal discharge, no septal abnormalities noted. Tympanic membranes are normal and external auditory canals are clear. Oropharynx with no redness, swelling, or masses, exudates, or evidence of obstruction, uvula midline. Mucous membranes moist. Neck: Trachea midline, no thyromegaly or masses palpated, and no cervical lymphadenopathy. Supple, full range of motion without nuchal rigidity, or vertebral point tenderness. No Meningismus. Chest/axilla: Normal chest wall appearance and motion. Nontender with no deformity. No lesions are appreciated. Cardiovascular: Regular rate and rhythm with a normal S1 and S2. No gallops, murmurs, or rubs. Normal PMI, no JVD. No pulse deficits. Respiratory: Lungs have equal breath sounds bilaterally, clear to auscultation and percussion. No rales, rhonchi or wheezes noted. No increased work of breathing, no retractions or nasal flaring. Abdomen/GI: Soft, non-tender, with normal bowel sounds. No distension or tympany. No guarding or rebound. No evidence of tenderness throughout. Back: No spinal tenderness. No costovertebral tenderness. Full range of motion. Male : Normal genitalia with no discharge or lesions. Skin: Warm, dry with normal turgor. Normal color with no rashes, no lesions, and no evidence of cellulitis. Neuro: Awake and alert, GCS 15, oriented to person, place, time, and situation. Cranial nerves II-XII grossly intact. Motor strength 5/5 in all extremities. Sensory grossly intact. Cerebellar exam normal. Normal gait. Psych: Awake, alert, with orientation to person, place and time. Behavior, mood, and affect are within normal limits. 12:25 Musculoskeletal/extremity: ROM: limited active range of motion, limited passive range of motion, limited active range of motion due to pain, limited passive range of motion due to pain, Circulation is intact in all extremities. Sensation intact. Compartment Syndrome exam of affected extremity: is normal. DVT Exam: negative Homans' sign noted on exam, no appreciated bluish discoloration, no erythema, no increased warmth, pain, swelling, tenderness, Vital Signs: 10:43 BP 144 / 90; Pulse 99; Resp 17 S; Temp 99.1(TE); Pulse Ox 98% on R/A; Weight 102.06 kg aa5 (R); Height 6 ft. 0 in. (R); 10:43 Body Mass Index 30.52 (102.06 kg, 182.88 cm) aa5 MDM: 10:41 Patient medically screened. [facility] 12:28 Differential diagnosis: dislocation, closed fracture, contusion, abrasion, tendonitis. [facility] Data reviewed: vital signs, nurses notes, radiologic studies, plain films. Consideration of Admission/Observation Escalation of care including admission/observation considered. I considered the following discharge prescriptions or medication management in the emergency department Medications were administered in the Emergency Department. See MAR. Test considered but Not performed: Labs: no labs. Historians other than the Patient: Spouse/Significant Other: , informed. Care significantly affected by the following chronic conditions: none. Counseling: I had a detailed discussion with the patient and/or guardian regarding the historical points, exam findings, and any diagnostic results supporting the discharge/admit diagnosis, the need for outpatient follow up, for definitive care, a family practitioner, a orthopedic surgeon. ED course: explained need for follow up, rest, ice, elevation. 03/09 10:47 Order name: Knee Left 3 View XRAY; Complete Time: 12:21 aa5 03/09 10:52 Order name: Ice pack; Complete Time: 10:53 emiliano 03/09 12:20 Order name: Knee Immobilizer; Complete Time: 13:08 emiliano Administered Medications: :58 Drug: Ibuprofen PO 800 mg PO once Route: PO; aa5 12:24 Follow up: Response: No adverse reaction eh3 10:58 Drug: [employer] PO 10 mg-325 mg 1 tabs PO once Route: PO; aa5 12:24 Follow up: Response: No adverse reaction eh3 Disposition Summary: 03/09/23 12:31 Discharge Ordered Notes: Location: Home [facility] Problem: new emiliano Symptoms: have improved emiliano Condition: Stable emiliano Diagnosis - Pain in left knee emiliano - Unspecified internal derangement of left knee emiliano - Sprain of other specified parts of left knee emiliano - Effusion, left knee emiliano Followup: emiliano - With: Private Physician - When: 2 - 3 days - Reason: Recheck today's complaints, Continuance of care, Re-evaluation by your physician Followup: emiliano - With: López Calles MD - When: 2 - 3 days - Reason: Recheck today's complaints, Continuance of care, Re-evaluation by your physician Discharge Instructions: - Discharge Summary Sheet emiliano - Joint Pain emiliano - How to Use a Knee Brace emiliano - Knee Effusion emiliano - How to Use a Knee Immobilizer emiliano - Musculoskeletal Pain emiliano - Acute Knee Pain, Adult emiliano - How to Use Cold Therapy, Qgvb-qh-Dfhy emiliano - Knee Effusion, Bjhf-tj-Koug emiliano - How to Use a Knee Immobilizer, Ombr-nu-Ubqs emiliano - Acute Knee Pain, Adult, Squc-vx-Vkhp emiliano - Joint Pain, Erej-iy-Rsqr [facility] Forms: - Medication Reconciliation Form [facility] - Thank You Letter [facility] - Antibiotic Education emiliano - Prescription Opioid Use emiliano - Patient Portal Instructions [facility] - Leadership Thank You Letter [facility] - Work release form eh3 Prescriptions: - acetaminophen-codeine 300-30 mg Oral tablet - take 2 tablet ORAL route every 6 hours as needed for pain; 24 tablet; Refills: emiliano 0, Product Selection Permitted - Diclofenac Sodium 75 mg Oral Tablet Sustained Release - take 1 tablet ORAL route 2 times per day; 30 tablet; Refills: 0, Product emiliano Selection Permitted Signatures: Dispatcher [employer] Phu Burger MD MD cha Calderon, Audri, RN RN aa5 Lilo Romano RN 3
--- NOTE | 2023-03-09 12:32 | ER ---
Nurse's Notes [facility] Name: Sen Chavis Age: 27 yrs Sex: Male : 1995 Arrival Date: 03/09/2023 Time: 10:33 Bed 16 Private MD: Diagnosis: Pain in left knee;Unspecified internal derangement of left knee;Sprain of other specified parts of left knee;Effusion, left knee Presentation: 03/09 10:43 Chief complaint: Patient states: "I was roughhousing last night and I twisted my left aa5 knee". Pt limping to triage. 10:43 Coronavirus screen: At this time, the client does not indicate any symptoms associated aa5 with coronavirus-19. Ebola Screen: Patient denies travel to an Ebola-affected area in the 21 days before illness onset. Initial Sepsis Screen: Does the patient meet any 2 criteria? No. Patient's initial sepsis screen is negative. Does the patient have a suspected source of infection? No. Patient's initial sepsis screen is negative. Risk Assessment: Do you want to hurt yourself or someone else? Patient reports no desire to harm self or others. Onset of symptoms was March 08, 2023. 10:43 Method Of Arrival: Ambulatory aa5 10:43 Acuity: ASHOK 4 aa5 Historical: - Allergies: 10:43 POISON EDI; aa5 10:43 Wasps; aa5 - Home Meds: 10:45 None [Active]; aa5 - PMHx: 10:45 None; aa5 - Immunization history:: Adult Immunizations unknown. - Social history:: Smoking status: Patient denies any tobacco usage or history of. - Family history:: not pertinent. Assessment: 11:40 General: Appears in no apparent distress. uncomfortable, Behavior is calm, cooperative, eh3 appropriate for age. Pain: Complains of pain in left knee. Neuro: Level of Consciousness is awake, alert, obeys commands, Oriented to person, place, time, situation. Cardiovascular: Capillary refill < 3 seconds Patient's skin is warm and dry. Respiratory: Airway is patent Respiratory effort is even, unlabored, Respiratory pattern is regular, symmetrical. GI: Abdomen is round non-distended. Derm: Skin is pink, warm \\T\\ dry. Musculoskeletal: Circulation, motion, and sensation intact. Vital Signs: 10:43 BP 144 / 90; Pulse 99; Resp 17 S; Temp 99.1(TE); Pulse Ox 98% on R/A; Weight 102.06 kg aa5 (R); Height 6 ft. 0 in. (R); 10:43 Body Mass Index 30.52 (102.06 kg, 182.88 cm) aa5 ED Course: 10:36 Patient arrived in ED. mr 10:41 Phu Yao MD is Attending Physician. [facility] 10:43 Arm band placed on. aa5 10:45 Triage completed. aa5 11:39 Knee Left 3 View XRAY In Process Unspecified. EDMA 11:40 Patient placed in an exam room, on a stretcher. [facility] 11:58 Lilo Romano, KIERRA is Primary Nurse. 3 12:30 López Calles MD is Referral Physician. [facility] 13:00 Knee immobilizer applied on left knee. eh3 Administered Medications: 10:58 Drug: Ibuprofen PO 800 mg PO once Route: PO; aa5 12:24 Follow up: Response: No adverse reaction 3 10:58 Drug: [place] PO 10 mg-325 mg 1 tabs PO once Route: PO; aa5 12:24 Follow up: Response: No adverse reaction [facility] Outcome: 12:31 Discharge ordered by . [facility] 13:19 Discharged to home ambulatory, with significant other, [facility] 13:19 Condition: stable 13:19 Discharge instructions given to patient, significant other, Instructed on discharge instructions, follow up and referral plans. no drinking with medication, no driving heavy equipment, medication usage, Demonstrated understanding of instructions, follow-up care, medications, splint care, Prescriptions given X 2, 13:19 Patient left the ED. 3 Signatures: Dispatcher [employer] [facility] Phu Yao MD MD cha Rivera, Mary, Reg Reg mr DouglasRadha, RN RN aa5 Kirill Magdaleno RN RN [facility] Lilo Romano, KIERRA RN 3
[2023-03-09 13:34] VITALS: BP 144/90; TEMP 99.1; O2SAT 98
== END 2023-03-09 13:19 | disposition home or self-care (01) ==
LOC: ER 10:33
DX: M23.92 Unspecified internal derangement of left knee (principal); S83.8X2A Sprain of other specified parts of left knee, initial encounter; M25.462 Effusion, left knee
CPT/HCPCS: 99283

== ENCOUNTER 2024-06-12 04:31 | Emergency (ER) | payer SELFPAY ==
--- OUTSIDE RECORDS SUMMARY | 2024-06-12 04:33 | XMS REPORT | Continuity of Care Document ---
Author Name Unknown Address [address] [facility] [place] [address] [facility] thconnect Address [address] [facility] [address] [place] [address] Care Team Providers Care Home Security Professional Name Role Phone Pcp, Patient Does Not Have A Primary Care Physic simran LEIGHTON ROMERO Attending Clinician Unavailable Doctor Unassigned, [place] Attending Clinician U mirlande Perez RN, Gill Jaime Attending Clinician Unavailab le Unknown, Attending Attending Clinician Unavailab le Payers Payer Name Policy Type Policy Number Effective Date Expirati on Date Source [facility] [id number] 2014 00:00:00 Allergies, Adverse Reactions, Alerts Allergy Name Allergy Type Status Severity Reaction(s) Onset Date Inactive Date Treating Clinician Comments Source NO KNOWN ALLERGIE S Drug Class Active [facility] Social History Social Habit Start Date Stop Date Quantity Comments Source [facility] SARS-[facility]2 (event) 2020-12-26 00:00:00 2021-01-25 10:39:00 Not sure [facility] Sex Assigned At 1995 00:00:00 1995 00[birth year]00 [facility] Smoking Status Start Date Stop Date Source Tobacco smoking consumption unknown [facility] Medications Ordered Medication Name Filled Medication Name Start Date Stop Date Current Medication? Ordering Clinician Indication Dosage Frequency Signature (SIG) Comments Components Source benzonatate 100 mg capsule 2018-06 00:00: 00 Yes [id number] 100mg Take 1 capsule by mouth 3 (three) times daily as needed for Cough. [facility] methylPREDN ISolone (MEDROL, MIK,) 4 mg tablets 2018-06 00:00: 00 Yes [id number] Take by mouth SEE-INSTRU CTIONS. follow package directions [facility] ondansetron (ZOFRAN ODT) 4 mg disintegrat ing tablet 2018-06 00:00: 00 Yes [id number] 4mg Take 1 tablet by mouth every 8 (eight) hours as needed for Nausea and Vomiting (N/V). [facility] ibuprofen 600 mg tablet 2018-06 00:00: 00 Yes [id number] 600mg Take 1 tablet by mouth every 6 (six) hours as needed for Pain (scale 4-6). [facility] Procedures Procedure Date / Time Performed Performing Clinicia n Source EXTERNAL PROVIDER RECORDS 2021-02-07 05:01:00 Doctor Unassigned, [place] [facility] ASSIGNMENT OF BENEFITS 2021-01-25 15:30:04 Docto r Unassigned, [place] [facility] Encounters Start Date/Time End Date/Time Encounter Type Admission Type Attending Clinicians Care Facility Care Department Encounter ID Source 2022-06-11 08:30:00 2022-06-11 08:30:00 Outpatient LEIGHTON ROMERO [id number] Jillian May 2021-02-07 00:00:00 2021-02-07 00:00:00 Orders Only Doctor Unassigned, [place] [facility] ..114 [id number] [facility] 2021-01-26 00:00:00 2021-01-26 00:00:00 Letter (Out) Gill Perez [facility] ..114 [id number] [facility] 2021-01-26 00:00:00 2021-01-26 00:00:00 Patient Secure Msg Doctor Unassigned, [place] [facility] .114 [id number] [facility] 2021-01-25 10:30:00 2021-01-25 10:30:00 Outpatient R [facility] [id number] [facility] 2021-01-25 00:00:00 2021-01-25 00:00:00 Letter (Out) Unknown, Attending [facility] Jeremie Irwin?[facility] [id number] [facility] 2021-01-25 00:00:00 2021-01-25 00:00:00 Orders Only Doctor Unassigned, [place] [facility] [id number] [facility] 2021-01-25 00:00:00 2021-01-25 00:00:00 Letter (Out) Doctor Unassigned, [place] [facility] 1.114 [id number] [facility]
[2024-06-12] MEDS ORDERED: KETOROLAC 30 MG/ML INJ ONE (05:10)
--- NOTE | 2024-06-12 06:19 | EDPHYS ---
Physician Documentation [facility] Name: Sen Chavis Age: 28 yrs Sex: Male : 1995 Arrival Date: 06/12/2024 Time: 04:31 Bed 13 Private MD: ED Physician Bobby Block HPI: 06/12 05:36 This 28 yrs old Male presents to ER via Ambulatory with complaints of Ankle Injury. rt 05:36 Patient presents to the ED with an injury to the left ankle. Patient states that he was rt running with his dogs about 10 PM last night when he fell, rolling inward. Reports pain to the ankle states that it makes it difficult for him to walk. Denies other acute complaints at this time, symptoms are aching nature, nonradiating, moderate severity, no other aggravating or alleviating factors.. Historical: - Allergies: 04:54 POISON EDI; ha1 04:54 Wasps; ha1 - PMHx: 04:54 None; ha1 - Immunization history:: Adult Immunizations up to date. - Infectious Disease History:: Denies. - Social history:: Smoking status: unknown. - Family history:: not pertinent. ROS: 05:36 Constitutional: Negative for fever, chills, and weight loss, Cardiovascular: Negative rt for chest pain, palpitations, and edema, Respiratory: Negative for shortness of breath, cough, wheezing, and pleuritic chest pain, Abdomen/GI: Negative for abdominal pain, nausea, vomiting, diarrhea, and constipation, Skin: Negative for injury, rash, and discoloration, 05:36 MS/extremity: Positive for pain, swelling, Exam: 05:36 Constitutional: This is a well developed, well nourished patient who is awake, alert, rt and in no acute distress. Head/Face: Normocephalic, atraumatic. Chest/axilla: Normal chest wall appearance and motion. Nontender with no deformity. No lesions are appreciated. Cardiovascular: Regular rate and rhythm with a normal S1 and S2. No gallops, murmurs, or rubs. Normal PMI, no JVD. No pulse deficits. Respiratory: Lungs have equal breath sounds bilaterally, clear to auscultation and percussion. No rales, rhonchi or wheezes noted. No increased work of breathing, no retractions or nasal flaring. 05:36 Musculoskeletal/extremity: Swelling with tenderness over the lateral malleolus, mild tenderness on the medial malleolus, pulses, motor, sensation intact, no other focal areas of tenderness, no deformity noted, skin is intact.. Vital Signs: 04:39 BP 156 / 92; Pulse 103; Resp 19 S; Temp 97.3(T); Pulse Ox 99% on R/A; Weight 104.33 kg; ha1 Height 5 ft. 11 in. ; 06:00 BP 124 / 79; Pulse 74; Resp 18; Pulse Ox 100% on R/A; kj2 06:28 BP 126 / 80; Pulse 72; Resp 18; Temp 98; Pulse Ox 100% on R/A; kj2 04:39 Body Mass Index 32.08 (104.33 kg, 180.34 cm) ha1 MDM: 04:49 Medical Screening Exam initiated rt 06:18 Differential diagnosis: fracture, sprain. Data reviewed: vital signs, nurses notes, rt radiologic studies. Independent interpretation of the following test(s) in the Emergency Department X-Ray: My interpretation is No fracture seen on my interpretation of x-ray images. Counseling: I had a detailed discussion with the patient and/or guardian regarding the historical points, exam findings, and any diagnostic results supporting the discharge/admit diagnosis, radiology results, the need for outpatient follow up. Response to treatment: the patient's symptoms have mildly improved after treatment. 06/12 04:54 Order name: Ankle Left 3 View XRAY rt 06/12 06:15 Order name: Iain Wrap; Complete Time: 06:31 rt Administered Medications: 05:15 Drug: Ketorolac IM 30 mg IM once Route: IM; Site: left deltoid; kj2 06:26 Follow up: Response: No adverse reaction kj2 Disposition Summary: 06/12/24 06:18 Discharge Ordered Notes: Location: Home rt Problem: new rt Symptoms: have improved rt Condition: Stable rt Diagnosis - Sprain of ankle rt Followup: rt - With: Private Physician - When: 2 - 3 days - Reason: Discharge Instructions: - Discharge Summary Sheet rt - Ankle Sprain rt Forms: - Medication Reconciliation Form rt - Antibiotic Education rt - Prescription Opioid Use rt - Patient Portal Instructions rt - Leadership Thank You Letter rt - Work release form rv1 Signatures: Dispatcher [employer] Litzy Mena, RN RN ha1 Bobby Block MD MD rt Jewels Rivera RN RN kj2
--- NOTE | 2024-06-12 06:19 | ER ---
Nurse's Notes [facility] Name: Sen Chavis Age: 28 yrs Sex: Male : 1995 Arrival Date: 06/12/2024 Time: 04:31 Bed 13 Private MD: Diagnosis: Sprain of ankle Presentation: 06/12 04:39 Chief complaint: Patient states: pain and swelling on the left ankle, I was running ha1 with my dog and I suddenly my foot just bent it. 04:39 Coronavirus screen: Vaccine status: Patient reports being unvaccinated. Ebola Screen: ha1 No symptoms or risks identified at this time. Initial Sepsis Screen: Does the patient meet any 2 criteria? No. Patient's initial sepsis screen is negative. Does the patient have a suspected source of infection? No. Patient's initial sepsis screen is negative. Risk Assessment: Do you want to hurt yourself or someone else? Patient reports no desire to harm self or others. Onset of symptoms was June 12, 2024. 04:39 Method Of Arrival: Ambulatory ha1 04:39 Acuity: ASHOK 4 ha1 Triage Assessment: 04:39 General: Appears uncomfortable, Behavior is cooperative. Pain: Complains of pain in ha1 left lateral ankle Pain currently is 10 out of 10 on a pain scale. Quality of pain is described as throbbing. Neuro: Level of Consciousness is awake, alert, obeys commands, Oriented to person, place, time, situation. Cardiovascular: Capillary refill < 3 seconds Patient's skin is warm and dry. Respiratory: Airway is patent Respiratory effort is even, unlabored, Respiratory pattern is regular, symmetrical. Musculoskeletal: Circulation, motion, and sensation intact. Historical: - Allergies: 04:54 POISON EDI; ha1 04:54 Wasps; ha1 - PMHx: 04:54 None; ha1 - Immunization history:: Adult Immunizations up to date. - Infectious Disease History:: Denies. - Social history:: Smoking status: unknown. - Family history:: not pertinent. Screenin:55 [facility] ED Fall Risk Assessment (Adult) History of falling in the last 3 months, ha1 including since admission No falls in past 3 months (0 pts) Confusion or Disorientation No (0 pts) Intoxicated or Sedated No (0 pts) Impaired Gait Yes (1 pt) Mobility Assist Device Used Yes (1 pt) Altered Elimination No (0 pt) Score/Fall Risk Level 3 or more points = High Risk Oriented to surroundings, Maintained a safe environment, Educated pt \T\ family on fall prevention, incl call for assistance when getting out of bed, Hourly rounding (assess needs \T\ fall precautionary measures) done. Abuse screen: Denies threats or abuse. Denies injuries from another. Nutritional screening: No deficits noted. Tuberculosis screening: No symptoms or risk factors identified. Assessment: 04:59 General: Appears in no apparent distress. uncomfortable, Behavior is calm, cooperative. kj2 Pain: Complains of pain in left lateral ankle and left leg Pain currently is 10 out of 10 on a pain scale. Neuro: Level of Consciousness is awake, alert, obeys commands, Oriented to person, place, time, situation. Cardiovascular: Patient's skin is warm and dry. Respiratory: Airway is patent Respiratory effort is even, unlabored. GI: No signs and/or symptoms were reported involving the gastrointestinal system. : No signs and/or symptoms were reported regarding the genitourinary system. 05:00 Reassessment: patient arrived with his crutches from home, he has from a previous kj2 injury. 06:00 Reassessment: Patient appears in no apparent distress at this time. Patient and/or kj2 family updated on plan of care and expected duration. Pain level reassessed. Patient is alert, oriented x 3, equal unlabored respirations, skin warm/dry/pink. 06:26 Reassessment: Patient appears in no apparent distress at this time. Patient and/or kj2 family updated on plan of care and expected duration. Pain level reassessed. Patient is alert, oriented x 3, equal unlabored respirations, skin warm/dry/pink. Vital Signs: 04:39 BP 156 / 92; Pulse 103; Resp 19 S; Temp 97.3(T); Pulse Ox 99% on R/A; Weight 104.33 kg; ha1 Height 5 ft. 11 in. ; 06:00 BP 124 / 79; Pulse 74; Resp 18; Pulse Ox 100% on R/A; kj2 06:28 BP 126 / 80; Pulse 72; Resp 18; Temp 98; Pulse Ox 100% on R/A; kj2 04:39 Body Mass Index 32.08 (104.33 kg, 180.34 cm) ha1 ED Course: 04:33 Patient arrived in ED. gm2 04:34 Bobby Block MD is Attending Physician. rt 04:39 Patient has correct armband on for positive identification. Bed in low position. Call ha1 light in reach. Side rails up X 1. Adult w/ patient. 04:49 Jewels Rivera, RN is Primary Nurse. kj2 04:54 Triage completed. ha1 05:01 Arm band placed on Patient placed in an exam room, on a stretcher. kj2 05:01 Provided Education on: call light. kj2 05:39 Ankle Left 3 View XRAY In Process Unspecified. EDMS 06:29 No provider procedures requiring assistance completed. Patient did not have IV access kj2 during this emergency room visit. Administered Medications: 05:15 Drug: Ketorolac IM 30 mg IM once Route: IM; Site: left deltoid; kj2 06:26 Follow up: Response: No adverse reaction kj2 Medication: 04:56 VIS not applicable for this client. ha1 Outcome: 06:18 Discharge ordered by . rt 06:29 Discharged to home with crutches, kj2 06:29 Condition: stable 06:29 Discharge instructions given to patient, family, Instructed on discharge instructions, follow up and referral plans. Demonstrated understanding of instructions, follow-up care, 06:46 Patient left the ED. kj2 Signatures: Dispatcher [employer] EDMS Litzy Stanley RN RN ha1 Bobby Block MD MD rt Ashanti Major gm2 Jewels Rivera RN RN kj2
--- NOTE | 2024-06-12 06:19 | RAD REPORT ---
CLINICAL HISTORY: Pain. COMPARISON: None. TECHNIQUE: XR ANKLE 3 OR MORE VIEWS LEFT 06/12/2024 4:54 AM ASSISTANT PRINCIPAL FINDINGS: There is no fracture. Joint spaces are preserved. There is mild lateral soft tissue swelling. IMPRESSION: No acute osseous findings. Electronically signed by: Sushil Valenzuela MD 06/12/2024 06:09 AM ASSISTANT PRINCIPAL RP Due to temporary technical issues with the PACS/[employer] reporting system, reports are being ana d by the in-house radiologist without review as a courtesy to ensure prompt reporting the interpreting radiologist is fully responsible for the content of the report. Transcribed Date/Time: 06/12/2024 6:19 AM
[2024-06-12 06:57] VITALS: O2SAT 100
[2024-06-12 07:00] VITALS: BP 126/80; TEMP 98
== END 2024-06-12 06:46 | disposition home or self-care (01) ==
LOC: ER 04:31
DX: S93.402A Sprain of unspecified ligament of left ankle, initial encounter (principal); W18.39XA Other fall on same level, initial encounter; Y93.89 Activity, other specified; Y92.480 Sidewalk as the place of occurrence of the external cause
CPT/HCPCS: 96372; 99284